=== PATIENT | male | born 1990 | race Caucasian/White ===

== ENCOUNTER 2018-03-10 11:20 | Emergency (ER) | payer BC ==
--- NOTE | 2018-03-10 12:03 | ED ---
Lower Extremity - HPI Summary HPI Summary: 27 y/o male presents to the ED c/o constant R ankle pain and swelling s/p twist. Decreased ROM, but pt is able to roll his ankle and move his toes. Pt was walking up the stairs and missed the last step, rolled R ankle. Associated sx: numbness and tingling in L toes. Pain aggravated with movement, weight bearing. - History of Current Complaint Chief Complaint: EDExtremityLower Stated Complaint: RT FOOT INJURY Time Seen by Provider: 03/10/18 12:01 Hx Obtained From: Patient Mechanism Of Injury: Twisted Onset of Pain: Immediate Onset/Duration: Hours Pain Intensity: 3 Timing: Constant Location: Is Discrete @ - R ankle Associated Signs And Symptoms: Positive: Swelling, Other - numbness/tingling in R toes - Allergies/Home Medications Allergies/Adverse Reactions: Allergies Allergy/AdvReac Type Severity Reaction Status Date / Time flurazine Allergy Vomiting Uncoded 03/10/18 11:38 Home Medications: Home Medications NK [No Home Medications Reported] 03/10/18 [History Confirmed 03/10/18] PMH/Surg Hx/FS Hx/Imm Hx Previously Healthy: No Cardiovascular History: Denies: Hx Congestive Heart Failure Opthamlomology History: Denies: Hx Legally Blind Infectious Disease History: No Infectious Disease History: Denies: Traveled Outside the [place] in Last 30 Days - Family History Known Family History: Positive: Unknown - Social History Alcohol Use: Occasionally Substance Use Type: Reports: None Smoking Status (MU): Never Smoked Tobacco Review of Systems Constitutional: Negative Eyes: Negative ENT: Negative Cardiovascular: Negative Respiratory: Negative Gastrointestinal: Negative Genitourinary: Negative Musculoskeletal: Other - R ankle pain, decreased ROM Skin: Negative Positive: Numbness - /tingling in R toes Psychological: Normal All Other Systems Reviewed And Are Negative: Yes Physical Exam - Summary Physical Exam Summary: Appearance: Well-appearing, Well-nourished Skin: Warm Eyes: Normal ENT: Normal Neck: Supple, nontender Respiratory: Clear to auscultation Cardiovascular: Regular rate, regular rhythm. Normal S1, S2. Abdomen: Soft, nontender Musculoskeletal: Moderate TTP @ R lateral malleolus, R lateral dorsal aspect of right foot. 2+ DP pulse, NVI Neurological: Normal, A&Ox3 Psychiatric: Normal General: No acute distress Triage Information Reviewed: Yes Vital Signs On Initial Exam: Initial Vitals Temp Pulse Resp BP Pulse Ox 98.1 F 72 18 124/83 99 03/10/18 11:25 03/10/18 11:25 03/10/18 11:25 03/10/18 11:25 03/10/18 11:25 Vital Signs Reviewed: Yes Diagnostics - Vital Signs Vital Signs Temp Pulse Resp BP Pulse Ox 03/10/18 11:25 98.1 F 72 18 124/83 99 - Laboratory Lab Statement: Any lab studies that have been ordered have been reviewed, and results considered in the medical decision making process. - Radiology FOOT XR Xray Interpretation: No Acute Changes - NO ACUTE FRACTURE Radiology Interpretation Completed By: Radiologist ANKLE XR Xray Interpretation: No Acute Changes - NO ACUTE BONY FINDINGS Radiology Interpretation Completed By: Radiologist Lower Extremity Course/Dx - Course Course Of Treatment: Xr of right foot and ankle neg for fx, but pt has difficulty bearing weight, CAM boot, crutches, RICE, NSAIDS PRN - Diagnoses Provider Diagnoses: Moderate right ankle sprain Discharge - Sign-Out/Discharge Documenting (check all that apply): Patient Departure - Discharge Plan Condition: Stable Disposition: HOME Patient Education Materials: Ankle Sprain (ED), Crutch Instructions (ED) Referrals: [facility] [place] [facility]FERR[facility] [Outside] Additional Instructions: RETURN FOR WORSENING SYMPTOMS - Billing Disposition and Condition Condition: STABLE Disposition: Home
--- NOTE | 2018-03-10 13:03 | RAD ---
INDICATION: Right ankle injury COMPARISON: None TECHNIQUE: AP, lateral, and oblique views were obtained. FINDINGS: There is no acute fracture or dislocation. There is no significant soft tissue swelling. IMPRESSION: NO ACUTE BONY FINDINGS.
--- NOTE | 2018-03-10 13:04 | RAD ---
INDICATION: Right foot pain COMPARISON: None TECHNIQUE: AP, lateral, and oblique views were obtained. FINDINGS: There is no acute fracture or dislocation. There is mild soft tissue swelling over the dorsum of the forefoot. There are small heel spurs. IMPRESSION: NO ACUTE FRACTURE.
[2018-03-10 14:02] VITALS: BP 139/81
== END 2018-03-10 14:02 | disposition home or self-care (01) ==
LOC: ED 11:20
DX: S93.401A Sprain of unspecified ligament of right ankle, initial encounter (principal); X50.0XXA Overexertion from strenuous movement or load, initial encounter; Y93.01 Activity, walking, marching and hiking; Y92.9 Unspecified place or not applicable; Z88.8 Allergy status to other drugs, medicaments and biological substances
CPT/HCPCS: 99283